=== PATIENT | female | born 1935 | race Caucasian/White ===

== ENCOUNTER 2020-09-26 07:27 | Day surgery (SDC) | payer MEDICARE ==
[~2020-09-26] VITALS: Ht 167.6 cm; Wt 45.8 kg
[~2020-09-26 07:27] MED LIST: Acetaminophen650 M1 PO; DOCU100; MULVITA PO; Miralax17 GM PO; VITAMIN D310 MC4 PO
--- NOTE | 2020-09-26 08:34 | NUR ---
Ambulatory in [facility] warming gown applied. Surgical site prepped with 2% Chlorhexidine cloth wipe. History, Chart, Medications and Allergies reviewed before start of procedure.Lungs clear T/O to Auscultation. Patient confirms NPO status and agrees with scheduled surgery. Pre-Op teaching done. Pt verbalizes understanding. Patient States Post-Procedure ride home has been arranged.
--- NOTE | 2020-09-26 10:21 | NUR ---
PT WAS BROUGHT TO PACU AFTER HAVING LOCAL IN OR TO REMOVE CHEST WALL MASS AND THERE WAS NO ROOM IN DAY SURGERY SHE IS A/O DENIES PAIN VERY EAGER TO GO HOME DRINKING ICE WATER
--- NOTE | 2020-09-26 16:06 | NUR ---
09/26/20 1606 Radhika Abdi VERIFICATIONS: EDIT CHART.
== END 2020-09-26 22:59 | disposition home or self-care (01) ==
LOC: ORD 07:27 → ORSCMMR 07:27 → ORD 09:00
PROVIDERS: Surgery
PROC: 0JB60ZX Excision of Chest Subcutaneous Tissue and Fascia, Open Approach, Diagnostic (ICD-10-PCS; principal; 2020-09-26 09:00)
DX: D36.7 Benign neoplasm of other specified sites (principal); M79.89 Other specified soft tissue disorders; F17.210 Nicotine dependence, cigarettes, uncomplicated
CPT/HCPCS: 88304; J7120

== ENCOUNTER 2021-03-09 07:42 | Day surgery (SDC) | payer MEDICARE ==
[~2021-03-09] VITALS: Ht 165.1 cm; Wt 45.9 kg
[~2021-03-09 07:42] MED LIST changes: +Aspirin325 MG PO; +DICLOFENAC SOD100 GM TOP; +GABA300 PO; +MECL25 PO
--- NOTE | 2021-03-09 08:49 | NUR ---
Ambulatory in Day Surgery History, Chart, Medications and Allergies reviewed before start of procedure.Patient confirms NPO status and agrees with scheduled surgery.
--- NOTE | 2021-03-09 09:01 | NUR ---
03/09/21 0901 Dora Almodovar HISTORY,CHART, MEDICATIONS AND ALLERGIES REVIEWED BEFORE START OF PROCEDURE. PATIENT CONFIRMS NPO STATUS AND AGREES WITH SCHEDULED PROCEDURE. 3-LEAD EKG REVIEWED WITH PHYSICIAN PRIOR TO START OF PROCEDURE. MONITOR INTACT WITH CONTINUOUS PULSE OXIMETRY AND INTERMITTENT BP. SUPPLEMENTAL O2 TO BE TITRATED THROUGHOUT PROCEDURE TO MAINTAIN O2 SATURATION ABOVE 90%. PATIENT DETERMINED TO BE ASA APPROPRIATE FOR MODERATE SEDATION PRIOR TO START OF PROCEDURE BY DR. VELASCO.
--- NOTE | 2021-03-09 10:06 | NUR ---
DRESSINGS X3 TO ABDOMEN ARE CDI. PROVIDED PAIN PILL, FOOD AND FLUID.
--- NOTE | 2021-03-09 10:07 | NUR ---
PT MOVED TO BAY 1 FROM BRONCH ROOM. PT SLEEPY BUT ABLE TO DEEP BREATH AND COUGH. BIOX DROPS TO APPROX 88% RA WHEN PT DRIFTS OFF TO SLEEP. PT PLACED ON 2L NC WHILE SHE RESTS. BIOX 94%
--- NOTE | 2021-03-09 10:17 | NUR ---
PT SLEEPING, ROUSES TO VERBAL STIMULI. PT O2 DECREASED TO 1L AT THIS TIME. BIOX 95% ON 1L
--- NOTE | 2021-03-09 10:26 | NUR ---
O2 OFF AT THIS TIME TO EVALUTE PTS ROOM AIR O2 SATURATION. PT RESTING COMFORTABLY, RESPS EVEN AND UNLABORED. ROUSES EASILY TO VERBAL STIMULI.
--- NOTE | 2021-03-09 10:42 | NUR ---
PT BIOX DROPPED ABOUT 87% WHILE SLEEPING. PT ROUSES TO VERBAL STIMULI AND ENCOURAGED TO DEEP BREATH AND COUGH, BIOX UP TO 96% ON RA WHILE AWAKE. PT STILL DROWSY AND WANTS TO FALL BACK TO SLEEP. PT PLACED BACK ON 1L NC TO REST.
--- NOTE | 2021-03-09 11:40 | NUR ---
PT AWAKE, DRINKING COFFEE. O2 SATURATIONS REMAIN ABOVE 94% ON RA. DR. VELASCO DOWN TO TALK WITH PT AND INSTRUCTS THIS RN THAT PT IS ABLE TO BE DISCHARGED. PT DENIES ANY C/O AT THIS ITME.
--- NOTE | 2021-03-09 11:50 | NUR ---
REVIEWED DISCHARGE INSTRUCTIONS. PT ABLE TO GET DRESSED AND MOVE ABOUT WITHOUT DIFFICULT. PT DENIES SOB OR C/O PAIN. PT IV DC'D INTACT. Patient States Post-Procedure ride home has been arranged. Discharged via wheelchair to private car for ride home.
== END 2021-03-09 11:50 | disposition home or self-care (01) ==
LOC: ORSCMMR 07:42 → ORD 09:00 → ORSCMMR 09:00
PROVIDERS: Internal Medicine Critical Care Medicine
PROC: 0B948ZX Drainage of Right Upper Lobe Bronchus, Via Natural or Artificial Opening Endoscopic, Diagnostic (ICD-10-PCS; principal; 2021-03-09 09:00)
DX: R91.8 Other nonspecific abnormal finding of lung field (principal); R63.4 Abnormal weight loss; R06.00 Dyspnea, unspecified; F17.210 Nicotine dependence, cigarettes, uncomplicated; Z79.82 Long term (current) use of aspirin; Z79.899 Other long term (current) drug therapy
CPT/HCPCS: 71045; 87070; 87077; 87186; 87205; 88108; A9270; J0171; J2250; J3010; J7120